=== PATIENT | male | born 1980 | race Caucasian/White ===

== ENCOUNTER 2017-01-02 18:02 | Inpatient (IN) | payer SELFPAY ==
[~2017-01-02] VITALS: Ht 177.8 cm; Wt 138.3 kg
[2017-01-02 19:08] LABS: Basophils # (auto) 0 uL; Basophils % (auto) 0.2 % (0.0-2.0); Eosinophils # (auto) 0.1 uL; Eosinophils % (auto) 0.8 % (0.0-7.0); Hematocrit 43.7 % (41.0-53.0); Hemoglobin 15.1 g/dL (13.5-17.5); Lymphocytes % (auto) 12.7 % (10.0-50.0); Mean Corpuscular Hemoglobin 32.7 pg (28.0-32.0); Mean Corpuscular Hgb Conc. 34.5 g/dL (32.0-36.0); Mean Corpuscular Volume 94.8 fL (80.0-100.0); Mean Platelet Volume 8.6 fL (7.4-10.4); Monocytes # (auto) 0.7 uL; Monocytes % (auto) 8.6 % (0.0-12.0); Neutrophils # (auto) 5.9 uL; Neutrophils % (auto) 77.7 % (37.0-80.0); Platelet Count (auto) 196 10^3/uL (140-450); Red Cell Distribution Width 12.4 % (11.6-16.0); White Blood Cell 7.6 10^3/uL (4.4-10.8)
[2017-01-02 19:29] LABS: Albumin 3.5 g/dL (3.4-5.0); BUN/Creatinine Ratio 10.1; Calcium 9.8 mg/dL (8.5-10.1); Potassium 3.6 mmol/L (3.5-5.1); Total Protein 7.9 g/dL (6.4-8.2)
[2017-01-03] MEDS ORDERED: KETOROLAC TROMETH 30 MG/ML 1ML VIAL IV ONE (01:15)
[2017-01-03] MEDS ORDERED: cefTRIAXone 1GM/50ML D5W 50 ML IV ONE ×2 (01:15→02:11)
[2017-01-03] MEDS ORDERED: MORPHINE SULFATE 4 MG/ML SYRG IV PRN (04:00)
[2017-01-03] MEDS ORDERED: NITROGLYCERIN 0.4 MG SL TAB SL PRN (04:00)
[2017-01-03] MEDS ORDERED: SODIUM CHLORIDE 0.9% 1,000 ML IV ONE (04:00)
[2017-01-03] MEDS ORDERED: MORPHINE SULF INJ 2 MG/ML SYRINGE 1ML IV PRN (04:00)
[2017-01-03] MEDS ORDERED: VANCOMYCIN 1GM/250ML D5W 250 ML IV SCH (04:00)
[2017-01-03] MEDS ORDERED: PIPERACILLIN-TAZOB 3.375GM 100 ML IV SCH (04:00)
[2017-01-03] MEDS ORDERED: ONDANSETRON HCL 4 MG/2 ML VIAL IV PRN (04:00)
[2017-01-03 05:29] VITALS: BP 117/61
[2017-01-03 09:00] VITALS: BP 104/67
[2017-01-03 13:00] VITALS: BP 114/64
[2017-01-03] MEDS: PIPERACILLIN-TAZOB 3.375GM 100 ML IV SCH ×2 (14:08→18:02)
[2017-01-03] MEDS: VANCOMYCIN 1GM/250ML D5W 250 ML IV SCH ×2 (15:25→21:14)
[2017-01-03] MEDS: SODIUM CHLORIDE 0.9% 1,000 ML IV SCH (15:37)
[2017-01-03 17:00] VITALS: BP 117/78
[2017-01-03] MEDS: HYDROmorphone HCL 2 MG/ML VL IV PRN ×2 (18:44→22:21)
[2017-01-03 22:00] VITALS: BP 116/57
[2017-01-04] MEDS: PIPERACILLIN-TAZOB 3.375GM 100 ML IV SCH ×3 (00:11→20:40)
[2017-01-04] MEDS: SODIUM CHLORIDE 0.9% 1,000 ML IV SCH ×2 (02:15→15:10)
[2017-01-04] MEDS: HYDROmorphone HCL 2 MG/ML VL IV PRN ×4 (04:09→23:47)
[2017-01-04 05:38] VITALS: BP 133/77
[2017-01-04 05:41] LABS: Basophils # (auto) 0 uL; Basophils % (auto) 0.4 % (0.0-2.0); Eosinophils # (auto) 0.1 uL; Eosinophils % (auto) 1.5 % (0.0-7.0); Hematocrit 38.5 % (41.0-53.0); Hemoglobin 13.3 g/dL (13.5-17.5); Lymphocytes # (auto) 0.7 uL; Lymphocytes % (auto) 11.6 % (10.0-50.0); Mean Corpuscular Hgb Conc. 34.5 g/dL (32.0-36.0); Mean Corpuscular Volume 95.4 fL (80.0-100.0); Mean Platelet Volume 8.5 fL (7.4-10.4); Monocytes # (auto) 0.4 uL; Neutrophils # (auto) 5.1 uL; Neutrophils % (auto) 79.5 % (37.0-80.0); Platelet Count (auto) 175 10^3/uL (140-450); Red Cell Distribution Width 12.3 % (11.6-16.0); White Blood Cell 6.4 10^3/uL (4.4-10.8)
[2017-01-04 06:07] LABS: Albumin 2.9 g/dL (3.4-5.0); BUN/Creatinine Ratio 14.1; Calcium 8.7 mg/dL (8.5-10.1); Potassium 3.8 mmol/L (3.5-5.1)
[2017-01-04 06:10] LABS: Total Protein 6.5 g/dL (6.4-8.2)
[2017-01-04] MEDS: VANCOMYCIN 1GM/250ML D5W 250 ML IV SCH ×3 (06:57→23:09)
[2017-01-04 08:00] VITALS: BP 106/37
[2017-01-04 09:00] VITALS: BP 106/37
[2017-01-04 11:29] LABS: Magnesium 2.1 mg/dL (1.6-2.6)
[2017-01-04 16:54] VITALS: BP 114/65
[2017-01-04] MEDS: PRO-STAT 64 30ML PO SCH (18:00)
[2017-01-04 20:00] VITALS: BP 112/60
[2017-01-04 22:00] VITALS: BP 112/60
[2017-01-05] VITALS (7 sets, daily range): BP systolic 113–141; BP diastolic 64–76
[2017-01-05] MEDS: PIPERACILLIN-TAZOB 3.375GM 100 ML IV SCH ×4 (01:53→22:14)
[2017-01-05] MEDS: VANCOMYCIN 1GM/250ML D5W 250 ML IV SCH ×3 (06:43→17:49)
[2017-01-05] MEDS: SODIUM CHLORIDE 0.9% 1,000 ML IV SCH ×2 (06:43→17:48)
[2017-01-05] MEDS: HYDROmorphone HCL 2 MG/ML VL IV PRN ×4 (06:44→22:13)
[2017-01-05] MEDS: PRO-STAT 64 30ML PO SCH ×2 (08:00→18:00)
[2017-01-05] MEDS ORDERED: PIPERACILLIN-TAZOB 3.375GM 100 ML IV SCH (12:00)
[2017-01-06] VITALS (7 sets, daily range): BP systolic 100–141; BP diastolic 64–77
[2017-01-06] MEDS: VANCOMYCIN 1GM/250ML D5W 250 ML IV SCH ×4 (00:14→17:44)
[2017-01-06] MEDS: PIPERACILLIN-TAZOB 3.375GM 100 ML IV SCH ×3 (02:31→19:21)
[2017-01-06] MEDS: HYDROmorphone HCL 2 MG/ML VL IV PRN ×5 (04:33→21:10)
[2017-01-06 06:40] LABS: Basophils # (auto) 0 uL; Basophils % (auto) 0.6 % (0.0-2.0); Eosinophils # (auto) 0.1 uL; Hemoglobin 14.3 g/dL (13.5-17.5); Lymphocytes # (auto) 1.1 uL; Mean Corpuscular Hemoglobin 32.5 pg (28.0-32.0); Mean Corpuscular Volume 95.6 fL (80.0-100.0); Mean Platelet Volume 8.6 fL (7.4-10.4); Monocytes # (auto) 0.5 uL; Monocytes % (auto) 8.9 % (0.0-12.0); Neutrophils # (auto) 3.5 uL; Neutrophils % (auto) 67.5 % (37.0-80.0); Platelet Count (auto) 197 10^3/uL (140-450); Red Cell Distribution Width 12.3 % (11.6-16.0); White Blood Cell 5.2 10^3/uL (4.4-10.8)
[2017-01-06 06:51] LABS: INR 1.08 (0.9-1.15); Prothrombin Time 11.1 sec (9.37-12.3)
[2017-01-06] MEDS: SODIUM CHLORIDE 0.9% 1,000 ML IV SCH ×2 (07:10→20:30)
[2017-01-06 07:14] LABS: BUN/Creatinine Ratio 12.2; Calcium 8.8 mg/dL (8.5-10.1); Magnesium 2.4 mg/dL (1.6-2.6); Potassium 4.2 mmol/L (3.5-5.1)
[2017-01-06] MEDS: PRO-STAT 64 30ML PO SCH ×2 (08:00→17:45)
[2017-01-06] MEDS ORDERED: VANCOMYCIN 1GM/250ML D5W 250 ML IV SCH (10:00)
[2017-01-06] MEDS: DOCUSATE SOD 100 MG CAP PO PRN (17:45)
[2017-01-06] MEDS: POLYETHYLENE GLYCOL 17GM PWDR PO PRN (17:46)
[2017-01-06] MEDS: ASCORBIC ACID 500 MG TAB PO SCH (21:52)
[2017-01-07] MEDS: PIPERACILLIN-TAZOB 3.375GM 100 ML IV SCH ×2 (00:42→06:45)
[2017-01-07] MEDS: HYDROmorphone HCL 2 MG/ML VL IV PRN ×4 (01:13→11:54)
[2017-01-07] MEDS: VANCOMYCIN 1GM/250ML D5W 250 ML IV SCH ×3 (02:46→18:00)
[2017-01-07 05:00] VITALS: BP 104/71
[2017-01-07 06:31] LABS: Basophils # (auto) 0 uL; Basophils % (auto) 0.6 % (0.0-2.0); Eosinophils # (auto) 0.1 uL; Eosinophils % (auto) 1.7 % (0.0-7.0); Hematocrit 42.2 % (41.0-53.0); Hemoglobin 14.6 g/dL (13.5-17.5); Lymphocytes % (auto) 20.7 % (10.0-50.0); Mean Corpuscular Hemoglobin 32.7 pg (28.0-32.0); Mean Corpuscular Hgb Conc. 34.5 g/dL (32.0-36.0); Mean Corpuscular Volume 94.7 fL (80.0-100.0); Mean Platelet Volume 7.9 fL (7.4-10.4); Monocytes # (auto) 0.4 uL; Monocytes % (auto) 7.9 % (0.0-12.0); Neutrophils # (auto) 3.4 uL; Neutrophils % (auto) 69.1 % (37.0-80.0); Platelet Count (auto) 195 10^3/uL (140-450); Red Cell Distribution Width 12.5 % (11.6-16.0); White Blood Cell 4.9 10^3/uL (4.4-10.8)
[2017-01-07 06:41] LABS: INR 1.1 (0.9-1.15); Prothrombin Time 11.3 sec (9.37-12.3)
[2017-01-07 06:55] LABS: Albumin 3.2 g/dL (3.4-5.0); BUN/Creatinine Ratio 17.5; Bilirubin, Total 0.7 mg/dL (0.2-1.0); Calcium 9.5 mg/dL (8.5-10.1); Magnesium 2.4 mg/dL (1.6-2.6); Potassium 4.5 mmol/L (3.5-5.1); Total Protein 7.6 g/dL (6.4-8.2)
[2017-01-07 08:00] VITALS: BP 124/78
[2017-01-07 09:01] VITALS: BP 124/78
[2017-01-07] MEDS: ASCORBIC ACID 500 MG TAB PO SCH (09:58)
[2017-01-07] MEDS: PRO-STAT 64 30ML PO SCH ×2 (10:08→18:00)
[2017-01-07] MEDS: DOCUSATE SOD 100 MG CAP PO PRN (10:11)
[2017-01-07] MEDS: POLYETHYLENE GLYCOL 17GM PWDR PO PRN (10:11)
[2017-01-07] MEDS: SODIUM CHLORIDE 0.9% 1,000 ML IV SCH (10:14)
[2017-01-07 13:00] VITALS: BP 118/68
[2017-01-07] MEDS ORDERED: SACC250C PO (14:00)
[2017-01-07] MEDS ORDERED: CLIN1CAP4 PO (14:00)
[2017-01-07] MEDS ORDERED: HYDROcodone-ACET 5/325MG TAB PO PRN (14:00)
[2017-01-07 14:21] VITALS: BP 118/68
== END 2017-01-07 19:30 | disposition home or self-care (01) | DRG 603 ==
LOC: ER 18:55 → WEST WING 18:56
PROVIDERS: ADMIT Family Medicine; ATTEND Internal Medicine
DX: L03.115 Cellulitis of right lower limb (principal); L03.116 Cellulitis of left lower limb; F12.10 Cannabis abuse, uncomplicated; F15.10 Other stimulant abuse, uncomplicated; B95.62 Methicillin resistant Staphylococcus aureus infection as the cause of diseases classified elsewhere
CPT/HCPCS: 36415; 80048; 80053; 80061; 80202; 83605; 83735; 85025; 85610; 87040; 87077; 87081; 87186; 87205; 93306; 93970; 96365; 96375; G0434; J0696; J1885; J2543

== ENCOUNTER 2017-03-31 01:17 | Emergency (ER) | payer MEDICAID ==
[~2017-03-31] VITALS: Ht 175.3 cm; Wt 133.8 kg
[~2017-03-31 01:17] MED LIST: CLIN1CAP4 PO; SACC250C PO
[2017-03-31 03:08] VITALS: BP 141/72
== END 2017-03-31 05:04 | disposition home or self-care (01) ==
LOC: ER 01:24
DX: S92.355A Nondisplaced fracture of fifth metatarsal bone, left foot, initial encounter for closed fracture (principal); F12.10 Cannabis abuse, uncomplicated; F15.10 Other stimulant abuse, uncomplicated; X58.XXXA Exposure to other specified factors, initial encounter; Y93.89 Activity, other specified; Y99.8 Other external cause status; Y92.89 Other specified places as the place of occurrence of the external cause
CPT/HCPCS: 29515; 73630

== ENCOUNTER 2019-11-03 11:27 | Emergency (ER) | payer MEDICAID, OTHER ==
[~2019-11-03] VITALS: Ht 177.8 cm; Wt 154.2 kg
[~2019-11-03 11:27] MED LIST changes: -CLIN1CAP4 PO; +CLIN300C8 PO
[2019-11-03 15:06] VITALS: BP 128/74
== END 2019-11-03 15:16 | disposition home or self-care (01) ==
LOC: ER 11:27
DX: L03.116 Cellulitis of left lower limb (principal); F17.210 Nicotine dependence, cigarettes, uncomplicated; F12.10 Cannabis abuse, uncomplicated; F15.10 Other stimulant abuse, uncomplicated
CPT/HCPCS: 93971

== ENCOUNTER 2019-11-08 15:48 | Emergency (ER) | payer SELFPAY ==
[~2019-11-08] VITALS: Ht 177.8 cm; Wt 158.8 kg
[2019-11-08 16:59] VITALS: BP 142/68
== END 2019-11-08 18:19 | disposition home or self-care (01) ==
LOC: ER 15:48
DX: S01.511A Laceration without foreign body of lip, initial encounter (principal); F17.210 Nicotine dependence, cigarettes, uncomplicated; F12.10 Cannabis abuse, uncomplicated; F15.10 Other stimulant abuse, uncomplicated; X58.XXXA Exposure to other specified factors, initial encounter; Y93.89 Activity, other specified; Y99.8 Other external cause status; Y92.89 Other specified places as the place of occurrence of the external cause